=== PATIENT | female | born 2000 | race African-American/Black ===

== ENCOUNTER 2022-07-18 23:52 | Observation (INO) | payer OTHER ==
[2022-07-19 00:35] LABS: Bacteria/HPF None Seen HPF (None Seen); Bilirubin Negative (Negative); Blood, Urine Negative (Negative); Clarity Clear (Clear); Glucose, Urine (Dipstick) Normal (Negative); Ketone, Urine 60 mg/dL (Negative); Leukocyte 75 Leu/uL (Negative); Nitrite Negative (Negative); Protein, Urine (Dipstick) 10 mg/dL (Neg-Trace); RBC/HPF 0-3 HPF (0-3); Specific Gravity, Urine 1.026 (1.002-1.036); Urobilinogen 3 mg/dL (Less than 2)
[2022-07-19 00:43] LABS: Pregnancy Test - Urine (BHCG) Negative (Negative); Pregu Control Background? CLEAR/WHITE (CLR/WHITE); Pregu Control Bar Appear? YES (CONTROL BAR); Specific Gravity 1.026 (1.002-1.036)
[2022-07-19 01:13] LABS: #Eosinphils 0.2 thou/uL (0.0-0.7); #Lymphocytes 1.7 thou/uL (1.20-3.40); #Monocytes 0.6 thou/uL (0.11-0.59); #Neutrophils 2.5 thou/uL (1.40-6.50); %Basophils 0.8 % (0.0-1.0); %Eosinophils 3.6 % (0.0-10.0); %Neutrophils 50.6 % (31.0-61.0); Hemoglobin 10.8 g/dL (12.0-16.0); Mean Corpuscular HGB CONC 30.3 g/dL (32.0-36.0); Mean Corpuscular Hemoglobin 25.2 pg (25.0-35.0); Mean Corpuscular Volume 83.1 fl (78.0-98.0); Mean Platelet Volume 6.6 fL (7.4-10.4); Platelet Count 334 thou/uL (130-400); RBC Distribution Width 14.7 % (11.5-14.5); Red Blood Cell (RBC) Count 4.31 mill/uL (4.00-5.20)
[2022-07-19 01:27] LABS: Acetaminophen Less than 10.0 mcg/mL (10.0-30.0); Alcohol Less than 10 mg/dL (Less than 10); Anion Gap 11 mmol/L (10-20); BUN (Urea Nitrogen) 11 mg/dL (8.4-21.0); Calc. Creatinine Clearance 0 mL/min (70-130); Carbon Dioxide 24 mmol/L (22-29); Chloride 107 mmol/L (98-107); Estimated GFR 112; Glucose 106 mg/dL (70-105); Potassium 3.9 mmol/L (3.5-5.1); Salicylate Less than 8.0 mg/dL (15.0-30.0); Sodium 138 mmol/L (136-145)
[2022-07-19] MEDS ORDERED: Acetaminophen 650 MG Suppository PR PRN (05:25)
[2022-07-19] MEDS ORDERED: Ondansetron PF 4 MG/2 ML Vial IVP PRN (05:25)
[2022-07-19] MEDS ORDERED: Ondansetron ODT 4 MG TAB PO PRN (05:25)
[2022-07-19] MEDS ORDERED: Morphine 4 MG/ML VIAL SLOW IVP PRN (06:36)
[2022-07-19] MEDS: Sodium Chloride 0.9% 1,000 ML IV SCH ×3 (08:18→17:49)
[2022-07-19] MEDS: Pantoprazole 40 MG VIAL IVP SCH (08:19)
[2022-07-19 10:45] VITALS: BMI 22.6
[2022-07-19 11:56] LABS: ALT (SGPT) 14 U/L (8-55); AST (SGOT) 20 U/L (5-30); Albumin 3.9 g/dL (3.5-5.0); Alkaline Phosphatase 61 U/L (40-100); Bilirubin, Direct 0.1 mg/dL (0.1-0.3); Bilirubin, Total 0.3 mg/dL (0.2-1.2); Protein, Total 6.8 g/dL (6.0-8.3)
[2022-07-19] MEDS ORDERED: PROPOFOL 200 MG/20 ML VIAL ONE (13:39)
[2022-07-19] MEDS ORDERED: Iopamidol-370 76% 500 ML 1 ML ONE (13:57)
[2022-07-19] MEDS ORDERED: Ketorolac Tromethamine 30 MG/ML VIAL ONE (13:59)
[2022-07-19] MEDS: Ketorolac Tromethamine 30 MG/ML VIAL IVP PRN ×2 (15:03→21:07)
[2022-07-19] MEDS: Acetaminophen 325 MG TAB PO PRN ×2 (16:44→21:08)
[2022-07-20] MEDS: Sodium Chloride 0.9% 1,000 ML IV SCH ×2 (01:18→08:47)
[2022-07-20 05:55] LABS: #Eosinphils 0.2 thou/uL (0.0-0.7); #Lymphocytes 1.9 thou/uL (1.20-3.40); #Monocytes 0.5 thou/uL (0.11-0.59); #Neutrophils 1.3 thou/uL (1.40-6.50); %Basophils 0.8 % (0.0-1.0); %Eosinophils 4.3 % (0.0-10.0); %Lymphocytes 48.7 % (28.0-48.0); %Monocytes 11.9 % (0.0-4.0); %Neutrophils 34.3 % (31.0-61.0); Hemoglobin 9.2 g/dL (12.0-16.0); Mean Corpuscular HGB CONC 30.6 g/dL (32.0-36.0); Mean Corpuscular Hemoglobin 25.5 pg (25.0-35.0); Mean Corpuscular Volume 83.3 fl (78.0-98.0); Mean Platelet Volume 6.4 fL (7.4-10.4); Platelet Count 258 thou/uL (130-400); RBC Distribution Width 14.3 % (11.5-14.5); Red Blood Cell (RBC) Count 3.61 mill/uL (4.00-5.20); White Blood Cell (WBC) Count 3.8 thou/uL (4.8-10.8)
[2022-07-20 06:19] LABS: Anion Gap 9 mmol/L (10-20); BUN (Urea Nitrogen) 5 mg/dL (8.4-21.0); Calc. Creatinine Clearance 114 mL/min (70-130); Calcium 8.8 mg/dL (7.8-10.44); Carbon Dioxide 24 mmol/L (22-29); Chloride 108 mmol/L (98-107); Estimated GFR 129; Glucose 74 mg/dL (70-105); Sodium 137 mmol/L (136-145)
[2022-07-20] MEDS: Pantoprazole 40 MG VIAL IVP SCH (06:22)
[2022-07-20] MEDS: Acetaminophen 325 MG TAB PO PRN (08:44)
[2022-07-20] MEDS: Ketorolac Tromethamine 30 MG/ML VIAL IVP PRN (10:53)
[2022-07-20 11:18] VITALS: BP 102/67; TEMP 98.4
== END 2022-07-20 11:55 | disposition home or self-care (01) ==
LOC: ERS 23:52 → SURG A 07-19 07:16
PROVIDERS: ADMIT Internal Medicine; ATTEND Internal Medicine
PROC: 0DJ08ZZ Inspection of Upper Intestinal Tract, Via Natural or Artificial Opening Endoscopic (ICD-10-PCS; principal; 2022-07-19)
DX: R10.32 Left lower quadrant pain (principal); R07.89 Other chest pain; R10.13 Epigastric pain; J45.909 Unspecified asthma, uncomplicated; D64.9 Anemia, unspecified; F17.200 Nicotine dependence, unspecified, uncomplicated; N83.202 Unspecified ovarian cyst, left side
CPT/HCPCS: 36415; 71045; 74177; 76705; 76856; 80048; 80076; 80307; 81003; 81015; 81025; 83690; 84484; 85025; 93005; 96374; 96376; C9113; G0378; J1885; J2270; J2704; J7050; Q9967

== ENCOUNTER 2022-09-03 19:46 | Emergency (ER) | payer OTHER ==
[2022-09-03] MEDS ORDERED: Ibuprofen 200 MG TAB ONE (21:58)
[2022-09-03 22:19] LABS: #Eosinphils 0.2 thou/uL (0.0-0.7); #Lymphocytes 1.9 thou/uL (1.20-3.40); #Monocytes 0.9 thou/uL (0.11-0.59); #Neutrophils 3.3 thou/uL (1.40-6.50); %Basophils 0.7 % (0.0-1.0); %Eosinophils 2.5 % (0.0-10.0); %Lymphocytes 29.6 % (28.0-48.0); %Monocytes 13.8 % (0.0-4.0); %Neutrophils 53.4 % (31.0-61.0); BHCG - Serum Negative (NEGATIVE); Hemoglobin 12.2 g/dL (12.0-16.0); Mean Corpuscular HGB CONC 30.9 g/dL (32.0-36.0); Mean Corpuscular Hemoglobin 26.1 pg (25.0-35.0); Mean Corpuscular Volume 84.6 fl (78.0-98.0); Mean Platelet Volume 6.7 fL (7.4-10.4); Platelet Count 359 10x3/uL (130-400); Pregs Control Background? CLEAR/WHITE (CLR/WHITE); Pregs Control Bar Appear? YES (CONTROL BAR); RBC Distribution Width 18.2 % (11.5-14.5); Red Blood Cell (RBC) Count 4.67 mill/uL (4.00-5.20); White Blood Cell (WBC) Count 6.3 10x3/uL (4.8-10.8)
[2022-09-03 22:43] LABS: ALT (SGPT) 14 U/L (8-55); AST (SGOT) 26 U/L (5-34); Albumin 4.7 g/dL (3.5-5.0); Alkaline Phosphatase 67 U/L (40-100); Anion Gap 12 mmol/L (10-20); BUN (Urea Nitrogen) 7 mg/dL (7.0-18.7); Bilirubin, Total 0.3 mg/dL (0.2-1.2); Calc. Creatinine Clearance 0 mL/min (70-130); Calcium 9.9 mg/dL (7.8-10.44); Carbon Dioxide 24 mmol/L (22-29); Chloride 105 mmol/L (98-107); Estimated GFR 117; Globulin 3.3 g/dL (2.4-3.5); Glucose 87 mg/dL (70-105); Lipase 91 U/L (8-78); Potassium 3.8 mmol/L (3.5-5.1); Sodium 137 mmol/L (136-145)
[2022-09-03 23:15] LABS: Bacteria/HPF None Seen HPF (None Seen); Bilirubin Negative (Negative); Blood, Urine 3+ (Negative); Clarity Clear (Clear); Glucose, Urine (Dipstick) Normal (Negative); Ketone, Urine Negative (Negative); Leukocyte Negative Leu/uL (Negative); Mucous/LPF 2+ LPF (<2+); Nitrite Negative (Negative); Protein, Urine (Dipstick) Negative (Neg-Trace); RBC/HPF 21-50 HPF (0-3); Squamous Epithelial 0-3 HPF (0-3)
[2022-09-03 23:48] LABS: SARS-CoV-2 NAA Rapid Test Not Detected (NotDetected)
== END 2022-09-04 01:57 | disposition home or self-care (01) ==
LOC: ERS 19:46
DX: N93.8 Other specified abnormal uterine and vaginal bleeding (principal); Z20.822 Contact with and (suspected) exposure to COVID-19
CPT/HCPCS: 36415; 71045; 74176; 80053; 81003; 81015; 83690; 84703; 85025; 85379; 93005